=== PATIENT | male | born 1995 ===

== ENCOUNTER 2017-08-21 21:08 | Emergency (ER) | payer SELFPAY ==
[2017-08-21 21:26] VITALS: BP 124/79; PULSE 66; RESP 18; TEMP 98; O2SAT 100
--- NOTE | 2017-08-21 21:35 | C.PDOC ---
History Of Present Illness 22 year old male complains of pain and "cracking" to midsternum after working out today. He reports he was weight lifting and then while stretching felt pain to midsternum and heard a crack. Area is tender to touch and pain worsens with movement or turning. Denies any sharp left sided chest pain, SOB, numbness, weakness. Time Seen by Provider: 08/21/17 21:27 Chief Complaint (Nursing): Medical Clearance History Per: Patient History/Exam Limitations: no limitations Onset/Duration Of Symptoms: Sudden Onset Current Symptoms Are (Timing): Still Present Past Medical History Reviewed: Historical Data, Nursing Documentation, Vital Signs Vital Signs: Last Vital Signs Temp 98.0 F 08/21/17 21:23 Pulse 66 08/21/17 21:23 Resp 18 08/21/17 21:23 BP 124/79 08/21/17 21:23 Pulse Ox 100 08/21/17 21:52 - Medical History PMH: No Chronic Diseases Surgical History: No Surg Hx Family History: States: Unknown Family Hx - Social History Hx Tobacco Use: No Hx Alcohol Use: Yes Hx Substance Use: No - Immunization History Hx Tetanus Toxoid Vaccination: No Hx Influenza Vaccination: No Hx Pneumococcal Vaccination: No Review Of Systems Except As Marked, All Systems Reviewed And Found Negative. Cardiovascular: Positive for: Chest Pain (midsternum) Physical Exam - Physical Exam Appears: Non-toxic, No Acute Distress Skin: Warm, Dry, No Rash, No Ecchymosis Head: Atraumatic, Normacephalic Eye(s): bilateral: Normal Inspection, EOMI Nose: Normal Oral Mucosa: Moist Neck: Normal ROM Chest: Symmetrical, No Deformity, Tenderness (to midsternum and right pectoralis muscle), No Ecchymosis, No Subcutaneous Emphysema Cardiovascular: Rhythm Regular, No Murmur Respiratory: Normal Breath Sounds, No Accessory Muscle Use, No Wheezing Back: Normal Inspection, No Vertebral Tenderness, No Decreased ROM, No Paraspinal Tenderness Extremity: Bilateral: Atraumatic, Normal Color And Temperature, Normal ROM Neurological/Psych: Oriented x3, Normal Speech Gait: Steady ED Course And Treatment O2 Sat by Pulse Oximetry: 100 Medical Decision Making Medical Decision Making: EKG obtained during triage. EKG is NS at 68 bpm with normal axis and no ischemic changes. Explain to patient based on history and exam, pain is related to muscle strain. Patient is asking for xray. CXR ordered and reviewed showing no cardiopulmonary disease, and osseous structures are normal, no fracture or abnormality Patient remained well in no acute distress. No pain during ED evaluation and no SOB. Pain is likely muscular and recommend NSAID for pain Disposition Counseled Patient/Family Regarding: Studies Performed, Diagnosis, Need For Followup - Disposition Referrals: [facility] at [facility] [Outside] [facility] [place] [Outside] [facility] [Outside] Disposition: HOME/ ROUTINE Disposition Time: 21:50 Condition: GOOD Additional Instructions: Your EKG and Chest Xray were normal. Your pain is muscular. Take Ibuprofen, Advil or Aleve for pain as needed. May apply heat to area for 15 minutes 2-3 times per day. Follow up in the clinic for further care Instructions: Musculoskeletal Pain (ED) Forms: [facility] (Slovak) - POA Present On Arrival: None - Clinical Impression Clinical Impression: Musculoskeletal chest pain
--- NOTE | 2017-08-22 09:19 | RAD ---
HISTORY: Mid sternal and muscular pain after working out COMPARISON: No prior. TECHNIQUE: Chest PA and lateral FINDINGS: LUNGS: No active pulmonary disease. PLEURA: No significant pleural effusion identified. No pneumothorax apparent. CARDIOVASCULAR: Normal. OSSEOUS STRUCTURES: No significant abnormalities. VISUALIZED UPPER ABDOMEN: Normal. OTHER FINDINGS: None. IMPRESSION: No active disease.
--- NOTE | 2017-08-24 09:01 | CARD ---
APPROVED REPORT EKG Measurement Heart [id number] <Conclusion> Normal sinus rhythm with sinus arrhythmia Normal ECG
== END 2017-08-21 21:57 | disposition home or self-care (01) ==
LOC: C.ER 21:08
DX: R07.89 Other chest pain (principal)